=== PATIENT | female | born 2000 ===

== ENCOUNTER 2021-06-02 21:18 | Emergency (ER) | payer OTHER ==
[~2021-06-02] VITALS: Ht 172.7 cm; Wt 75.0 kg
[2021-06-02 21:27] VITALS: BP 142/96
== END 2021-06-03 01:15 | disposition left against medical advice (07) ==
LOC: EMS 21:23
DX: R05.9 Cough, unspecified (principal); Z53.21 Procedure and treatment not carried out due to patient leaving prior to being seen by health care provider